=== PATIENT | female | born 1975 | race Caucasian/White ===

== ENCOUNTER 2022-05-09 09:04 | Emergency (ER) | payer OTHER, SELFPAY ==
--- NOTE | 2022-05-09 09:05 | ED.URI ---
HPI - URI/Sore Throat General Chief Complaint: Upper Respiratory Infection Stated Complaint: cold/flu Time Seen by Provider: 05/09/22 09:05 Source: patient Mode of arrival: ambulatory Limitations: no limitations History of Present Illness HPI Narrative: Rosi is a 47-year-old female patient presenting to the clinic today with complaints of a headache, sore throat, runny nose, sinus congestion, and chills. She reports no known fever. Symptoms x5 days. She reports that she has been taking some Sudafed and that has been helping. MD elicited complaint: cough, sore throat, rhinorrhea and nasal congestion Related Data Allergies Allergy/AdvReac Type Severity Reaction Status Date / Time sulfamethoxazole Allergy Severe JOINT PAIN Verified 05/09/22 10:02 AND STIFFNESS codeine Allergy Mild Other Verified 05/09/22 10:02 erythromycin base Allergy Mild Hives Verified 05/09/22 10:02 Sulfa (Sulfonamide Allergy Mild Other Verified 05/09/22 10:02 Antibiotics) trimethoprim Allergy Mild Other Unverified 05/09/22 10:02 Review of Systems Review of Systems: Pertinent positives per HPI. Patient denies any fever, chills, rash, headache, visual changes, dizziness, cough, shortness of breath, chest pain, palpitations, nausea, vomiting, diarrhea, constipation, abdominal pain, or any urinary issues. PMFSH Comments At the time of my signature, I reviewed and agree with the nursing past medical, surgical, social, and family history. There is no relevant family history pertinent to the patient complaint. Exam Narrative: General: Well-developed, well nourished, in no apparent distress Head: Normocephalic, atraumatic Eyes: Pupils equally round and reactive to light bilaterally, EOM intact, sclera and conjunctive clear, no discharge, lids normal Ears: TMs intact and clear, ear canals clear, no drainage, grossly hearing normal. Nose: Nares patent, clear nasal discharge, mild inflammation, no sinus tenderness. Mouth: Oral pharynx without lesions or masses, good dentition, MMM. Oropharynx red, postnasal drip Neck: Supple, trachea midline, no enlargement of anterior or posterior cervical nodes, no thyroid masses or goiter palpable. Cardio: Regular rate and rhythm, s1 and s2 normal, no murmur appreciated. Resp: Clear to auscultation bilaterally, no rhonchi, rales, wheezing or rubs Course Course Emergency Course: Portions of this record may have been created with voice recognition software. Level of Care: Express Care Visit Vital Signs Vital signs: Vital Signs Temperature 36.9 C 05/09/22 09:10 Pulse Rate 65 05/09/22 09:10 Respiratory Rate 16 05/09/22 09:10 Blood Pressure 105/70 05/09/22 09:10 Pulse Oximetry 100 05/09/22 09:10 Oxygen Delivery Room Air 05/09/22 09:10 Temperature 36.9 C 05/09/22 09:10 Pulse Rate 65 05/09/22 09:10 Respiratory Rate 16 05/09/22 09:10 Blood Pressure 105/70 05/09/22 09:10 Pulse Oximetry 100 05/09/22 09:10 Oxygen Delivery Room Air 05/09/22 09:10 Vital signs reviewed MDM - URI/Sore Throat MDM Narrative Medical decision making narrative: At the time of visit patient is resting comfortably on exam table. Strep screen was negative in the clinic today. I suspect the patient has URI/pharyngitis/viral syndrome. Prescription for prednisone was sent to the pharmacy to help with the congestion. Differential Diagnosis Differential diagnosis: Likely upper respiratory infection, sinusitis, viral infection, bronchitis, influenza, pharyngitis and other (COVID) Lab Data Labs: Strep Screen Presumptive Negative *(Reference Range: Negative)* Discharge Plan Discharge Clinical Impression: Viral infection Upper respiratory infection Qualifiers: URI type: unspecified URI Qualified Code(s): J06.9 - Acute upper respiratory infection, unspecified Pharyngitis Qualifiers: Pharyngitis/tonsillitis etiology:
[2022-05-09 09:10] VITALS: BP 105/70; PULSE 65; RESP 16; TEMP 36.9; O2SAT 100
== END 2022-05-09 09:42 | disposition home or self-care (01) ==
LOC: EXPBETH 09:08
PROVIDERS: Emergency Provider Nurse Practitioner Family; PCP Family Medicine
DX: B34.9 Viral infection, unspecified (principal); J02.9 Acute pharyngitis, unspecified
CPT/HCPCS: 87081; 87880; 99203; G0463